=== PATIENT | male | born 1965 | race African-American/Black ===

== ENCOUNTER 2019-06-10 06:49 | Inpatient (IN) ==
[2019-06-10] MEDS ORDERED: SODIUM CHLORIDE 0.9% 1,000 ML IV STA (06:57)
[2019-06-10] MEDS ORDERED: NALOXONE 0.4 MG/ML VIAL IV STA (06:57)
[2019-06-10 07:18] LABS: ABG Base Excess 0.2 MMOL/L (-2.5-2.5); ABG HCO3 24.6 MMOL/L (20-26); ABG Oxygen Saturation 98.3 % (95-100); ABG PCO2 43.4 MM HG (35-48); ABG PH 7.379 (7.35-7.45); ABG TCO2 22.3 MMOL/L (23-27)
[2019-06-10 07:22] LABS: Apearance,Urine CLEAR (Clear); Bacteria,Urine Occasional /HPF (Few); Bilirubin,Urine Negative (Negative); Blood, Urine Small mg/dL (Negative); Glucose,Urine (UA) Negative (Negative); Ketones,Urine Negative (Negative); Mucus,Urine Occasional /LPF (Occasional); Nitrite,Urine Negative (Negative); Protein,Urine Negative; RBC,Urine 23 /HPF (0-4); Squamous Epithelial Cell,Urine Occasional /HPF (0-10); Urine Color Yellow (Yellow); Urine Specific Gravity 1.026 (1.001-1.035); Urine Urobilinogen < 2.0 EU/DL (0.2-1.0)
[2019-06-10 07:33] LABS: Barbiturates Screen,Urine Negative (Negative); Benzodiazepines Screen,Urine Negative (Negative); Cannabinoid Screen,Urine Negative (Negative); Opiate Screen,Urine Negative (Negative); Phencyclidine Screen,Urine Negative (Negative)
[2019-06-10 07:41] LABS: Basophils # 0.1 10*3/uL (0.0-0.2); Eosinophils # 0.8 10*3/uL (0.0-0.87); Eosinophils % 11.6 % (0.00-10.9); Hematocrit 45.8 VOL% (42.0-52.0); Immature Granulocytes % 0.1 %; Immature Granulocytes Absolute 0.01 #; Lymphocytes # 2.3 10*3/uL (1.4-4.0); Lymphocytes % 33.3 % (21.2-54.2); Mean Corpuscular HGB Conc 32.8 GM/DL (32-36); Mean Corpuscular Volume 88.9 FL (87-102); Mean Platelet Volume 9.1 FL (9.6-12.0); Platelet Count 193 T/CUMM (130-400); Red Blood Count 5.15 MC/CUMM (3.8-5.5); Red Cell Distribution Width 13.2 % (9.3-17.3)
[2019-06-10 07:52] LABS: INR 0.9; PT Patient Result 10.3 SECS (9.6-12.2); Partial Thromboplastin Time 21.9 SECS (20.8-36.0)
[2019-06-10 07:58] LABS: Alanine Aminotransferase 33 U/L (16-61); Albumin 4.3 G/DL (3.4-5.0); Alkaline Phosphatase 74 U/L (45-117); Aspartate Amino Transferase 35 U/L (0-37); Bilirubin,Total < 0.39 MG/DL (0.2-1.0); Blood Urea Nitrogen 25 MG/DL (7-18); Calcium 9.6 MG/DL (8.5-10.1); Estimated Glom Filtration Rate 123 ML/MIN; Glucose 79 MG/DL (74-106); Osmolality,Calculated 283.3 MOS/KG (273-304); Thyroid Stimulating Hormone 0.205 uIU/ml (0.358-3.74); Total Protein 8.7 G/DL (6.4-8.3)
[2019-06-10 08:00] LABS: Eosinophils 10 % (0-10); Lymphocytes 36 % (20-55); Segmented Neutrophils 46 % (50-85); Total Cells Counted 100
[2019-06-10 08:01] LABS: Atypical Lymphocytes Few; Hypochromasia 1+; Microcytosis Slight
[2019-06-10] MEDS ORDERED: LEVOFLOXACIN INJ 500 MG in PREMIX 1 EACH IV STA (08:33)
[2019-06-10] MEDS ORDERED: LEVOFLOXACIN INJ 100 ML IV ONE (08:34)
[2019-06-10] MEDS ORDERED: HALOPERIDOL 5 MG/ML AMP IM PRN (10:08)
[2019-06-10] MEDS ORDERED: ACETAMINOPHEN 325 MG TABLET PO PRN (10:08)
[2019-06-10] MEDS ORDERED: ONDANSETRON 4 MG/2 ML VIAL IV PRN (10:08)
[2019-06-10] MEDS ORDERED: INFLUENZA VIRUS VACCINE 0.5 ML SYRINGE IM ONE (10:18)
[2019-06-10] MEDS: SODIUM CHLORIDE 0.9% 1,000 ML IV SCH ×2 (10:19→18:37)
[2019-06-10] MEDS: ENOXAPARIN 40 MG/0.4 ML SYRINGE SUBCUT SCH (10:22)
[2019-06-11] MEDS: SODIUM CHLORIDE 0.9% 1,000 ML IV SCH (02:47)
[2019-06-11 06:10] LABS: Basophils # 0.1 10*3/uL (0.0-0.2); Basophils % 0.9 % (0.0-0.8); Eosinophils # 0.7 10*3/uL (0.0-0.87); Eosinophils % 10.3 % (0.00-10.9); Hematocrit 38.9 VOL% (42.0-52.0); Hemoglobin 12.8 GM/DL (14.0-18.0); Immature Granulocytes % 0.4 %; Immature Granulocytes Absolute 0.03 #; Lymphocytes # 3.5 10*3/uL (1.4-4.0); Lymphocytes % 50.4 % (21.2-54.2); Mean Corpuscular HGB Conc 32.9 GM/DL (32-36); Mean Corpuscular Volume 87.6 FL (87-102); Mean Platelet Volume 8.8 FL (9.6-12.0); Monocytes % 8.3 % (1.7-12.7); Neutrophils % 29.7 % (38.7-73.9); Platelet Count 245 T/CUMM (130-400); Red Blood Count 4.44 MC/CUMM (3.8-5.5)
[2019-06-11 06:26] VITALS: BP 140/98
[2019-06-11 06:36] LABS: Eosinophils 10 % (0-10); Lymphocytes 63 % (20-55); Segmented Neutrophils 19 % (50-85); Total Cells Counted 100
[2019-06-11 06:37] LABS: Hypochromasia 1+; Platelet Estimate Normal
[2019-06-11 06:38] LABS: Atypical Lymphocytes Few
[2019-06-11 06:39] LABS: Reactive Lymphocytes Few
[2019-06-11 06:40] LABS: Bilirubin,Total 1.1 MG/DL (0.2-1.0); Calcium 8.5 MG/DL (8.5-10.1); Osmolality,Calculated 277.4 MOS/KG (273-304); Total Protein 6.5 G/DL (6.4-8.3)
[2019-06-11] MEDS ORDERED: PANTOPRAZOLE 40 MG TABLET PO SCH (09:00)
[2019-06-11] MEDS: ENOXAPARIN 40 MG/0.4 ML SYRINGE SUBCUT SCH (09:30)
== END 2019-06-11 11:15 | DRG 917 ==
LOC: N.ED 06:49 → N.EDINP 09:10 → N.ICU 09:51
PROVIDERS: ADMIT Internal Medicine; ATTEND Internal Medicine